=== PATIENT | male | born 1965 | race Two or more races ===

== ENCOUNTER 2024-04-13 10:42 | Inpatient (IN) | payer MEDICAID, OTHER ==
[~2024-04-13] VITALS: Ht 172.7 cm; Wt 86.0 kg
--- NOTE | 2024-04-13 11:03 | ED.PDOC ---
SOB-HPI HPI Comments 59Y M with PMHx asthma presents to ED via EMS for chief complaint SOB x1day. Patient has not tried any medication prior to coming to the ER. He was giving a breathing treatment in route for which he states that he feels slightly better. Pt denies chest pain, fever, and n/v/d. Denies any other symptoms. Chief Complaint: Shortness of Breath Time Seen by MD: 10:48 Reviewed notes: Nurses Notes, [employer] Notes, Medications, Allergies Information Source: Patient, Emergency Med Personnel Mode of Arrival: EMS Brought in by: EMS Severity: Mild Timing: Days Duration: Since onset Context: At Rest PE Risk Factors: None History of: Asthma Prehospital treatment: None Modifying Factors: Nothing Associated Signs and Symptoms: None Past Medical History PAST MEDICAL HISTORY: Asthma Surgical History: Denies all surgeries Family History Family History: Unknown Social History Smoker: Non-Smoker Alcohol: Denies ETOH Use Drugs: Denies Drug Use Lives In: Home Constitutional: denies: chills, diaphoresis, fatigue, fever, malaise, sweats, weakness, others EENTM: denies: blurred vision, double vision, ear bleeding, ear discharge, ear drainage, ear pain, ear ringing, eye pain, eye redness, hearing loss, mouth pain, mouth swelling, nasal discharge, nose bleeding, nose congestion, nose pain, photophobia, tearing, throat pain, throat swelling, voice changes, others Respiratory: reports: shortness of breath; denies: cough, hemoptysis, orthopnea, SOB at rest, SOB with excertion, stridor, wheezing, others Cardiovascular: denies: chest pain, dizzy spells, diaphoresis, Dyspnea on exertion, edema, irregular heart beat, left arm pain, lightheadedness, palpitations, PND, syncope, others Gastrointestinal: denies: abdomen distended, abdominal pain, blood streaked bowels, constipated, diarrhea, dysphagia, difficulty swallowing, hematemesis, melena, nausea, poor appetite, poor fluid intake, rectal bleeding, rectal pain, vomiting, others Genitourinary: denies: burning, dysuria, flank pain, frequency, hematuria, incontinence, penile discharge, penile sore, pain, testicle pain, testicle swelling, urgency, others Neurological: denies: dizziness, fainting, headache, left sided numbness, left sided weakness, numbness, paresthesia, pre-existing deficit, right sided numbness, right sided weakness, seizure, speech problems, tingling, tremors, wea kness, others Musculoskeletal: denies: back pain, gout, joint pain, joint swelling, muscle pain, muscle stiffness, neck pain, others Integumetry: denies: bruises, change in color, change in hair/nails, dryness, l aceration, lesions, lumps, rash, wounds, others Allergic/Immunocompromised: denies: Difficulty Healing, Frequent Infections, Hives, Itching, others Hematologic/Lymphatic: denies: anemia, blood clots, easy bleeding, easy bruising, swollen glands, others Endocrine: denies: excessive hunger, excessive sweating, excessive thirst, excessive urination, flushing, intolerance to cold, intolerance to heat, unexplained weight gain, unexplained weight loss, others Psychiatric: denies: anxiety, bipolar disorder, depression, hopeless, panic disorder, schizophrenia, sleepless, suicidal, others All Other Systems: Reviewed and Negative Physical Exam General Appearance: Moderate Distress, Normal HEENT: Normal ENT Inspection, Pharynx Normal, TMs Normal Neck: Full Range of Motion, Non-Tender, Normal, Normal Inspection Respiratory: Chest Non-Tender, No Accessory Muscle Use, Respiratory Distress, Wheezing Cardiovascular: No Edema, No JVD, No Murmur, No Gallop, Normal Peripheral Pulses, Regular Rate/Rhythm Breast Exam: Deferred Gastrointestinal: No Organomegaly, Non Tender, No Pulsatile Mass, Normal Bowel Sounds, Soft Genitalia: Deferred Pelvic: Deferred Rectal: Deferred Extremities: No calf tenderness, Normal capillary refill, Normal inspection, Normal range of motion, Non-tender, No pedal edema Musculoskeletal : Apperance: Normal Neurologic: Alert, marbleizing machine tender II-XII nml as Tested, No Motor Deficits, Normal Affect, Normal Mood, No Sensory Deficits Cerebellar Function: NOT DONE Reflexes: NOT DONE Skin: Dry, Normal Color, Warm Peripheral Pulses: 3+ Radial (R), 3+ Radial (L) Lymphatic: No Adenopathy Was a procedure done? Was a procedure done?: No Differential Dx Differential Diagnosis: Anxiety, Asthma, Bronchitis, CHF, COPD, Pneumonia X-Ray, Labs, Meds, VS Vital Signs Date Time Temp Pulse Resp B/P (MAP) Pulse Ox O2 Delivery O2 Flow Rate FiO2 12/24/24 12:30 99.0 102 18 96/65 (75) 96 99.0 04/13/24 11:25 18 92 Room Air* 0 21 04/13/24 11:00 Room Air* 0 04/13/24 10:52 98.0 102 18 129/68 (88) 99 Lab Test 04/13/24 12:42 04/13/24 11:26 Range/Units Sodium Level 139 136-145 mmol/L Potassium Level 3.9 3.5-5.1 mmol/L Chloride Level 107 98-107 mmol/L Carbon Dioxide Level 26 20-31 mmol/L Anion Gap 6 5-15 Blood Urea Nitrogen 11 9-23 mg/dL Creatinine 0.89 0.700-1.30 mg/dL Glomerular Filtration Rate Calc 100 >90 mL/min BUN/Creatinine Ratio 12.4 10.0-20.0 Serum Glucose 107 H 74-106 mg/dL Calcium Level 8.9 8.7-10.4 mg/dL White Blood Count 2.7 L 4.4-10.8 10^3/uL Red Blood Count 4.37 L 4.5-5.90 10^6/uL Hemoglobin 14.0 13.5-17.5 g/dL Hematocrit 41.7 41.0-53.0 % Mean Corpuscular Volume 95.5 80.0-100.0 fL Mean Corpuscular Hemoglobin 32.2 H 28.0-32.0 pg Mean Corpuscular Hemoglobin Concent 33.7 32.0-36.0 g/dL Red Cell Distribution Width 14.1 11.8-14.3 % Platelet Count 201 140-450 10^3/uL Mean Platelet Volume 9.9 6.9-10.8 fL Neutrophils (%) (Auto) 37.0-80.0 % Lymphocytes (%) (Auto) 10.0-50.0 % Monocytes (%) (Auto) 0.0-12.0 % Basophils (%) (Auto) 0.0-2.0 % Neutrophils # (Auto) 1.6-8.6 10 ^3/uL Lymphocytes # (Auto) 0.4-5.4 10 ^3/uL Monocytes # (Auto) 0-1.3 10 ^3/uL Differential Total Cells Counted 100.0 100 Neutrophils % (Manual) 61 37.0-80.0 Band Neutrophils % (Manual) 0 Lymphocytes % (Manual) 20 10.0-50.0 Monocytes % (Manual) 16 H 0-12 Eosinophils % (Manual) 3 0-7 Basophils % (Manual) 0 0.0-2.0 Metamyelocytes % (manual) 0 Myelocytes % (Manual) 0 Promyelocytes % (Manual) 0 Blast Cells % (Manual) 0 Reactive Lymphocytes 0 Platelet Estimate Adequate Red Blood Cell Morphology Normal Current Medications Medications (Trade) Dose Ordered Sig/Antony Route Start Time Stop Time Status Last Admin Methylprednisolone Sodium Succinate (Solu Medrol) 125 mg ONCE ONCE IV 04/13/24 11:00 04/13/24 11:01 DC 04/13/24 11:36 Albuterol (Ventolin Medneb) 5 mg ONCE ONCE NEB 04/13/24 11:00 04/13/24 11:01 DC 04/13/24 11:24 Ipratropium [place] (Atrovent Medneb) 0.5 mg ONCE ONCE NEB 04/13/24 11:00 04/13/24 11:01 DC 04/13/24 11:24 [place] [id number] Ph: [phone] DIAGNOSTIC IMAGING Diagnostic Imaging Report : [id number] Signed PATIENT: TONIA CARRILLO ACCT: [id number] UNIT: [id number] : 1965 LOC: ER ROOM / BED: / AGE / SEX: 59 / M ADM STATUS: REG ER SERVICE 1051 ORDERING PHYSICIAN: MARIA L RUCKER MD PROCEDURE(s): CXRP - CHEST PORTABLE REASON: sob ORDER NUMBER(s): [id number], ACCESSION NUMBER(s): [id number] CHEST RADIOGRAPH Indication: sob Technique: Single frontal view of the chest was obtained COMPARISON: None FINDINGS: Lines and Tubes: None Lungs: Masslike opacity in the medial left lung base measuring 5.0 cm. Diffuse congestion. Pleura: No effusion. No pneumothorax. Cardiomediastinal contours: Unremarkable Bones: Unremarkable IMPRESSION: Congestion may represent mild fluid overload or pulmonary vascular congestion. 5.0 cm masslike opacity in the medial left lung base. CT could be obtained to further evaluate if clinically indicated. ATED BY: ADRIAN LINDER MD DICTATED DATE/TIME: 04/13/24 1113 SIGNED BY: ADRIAN LINDER MD SIGNED DATE/TIME: 04/13/24 1113 CC: Patient alert. Came in because of shortness a breath. States that he is feeling much better after breathing treatment. Vitals stable. Chest x-ray reviewed does show congestion with masslike lesion. Chronic mass opacity in the left lung. Reviewed his history. Explained to the patient. Continue cardiac monitoring. He was given breathing treatment in route. Still continues to have shortness a breath. He does have asthma for which he does not take care of himself. Time of 1ST Reevaluation: 11:18 Reevaluation 1ST: Unchanged Patient Education/Counseling: Diagnosis, Treatment Family Education/Counseling: No Family Present Additional Information The following tests were ordered, and results were reviewed by me: CBC, BMP, CXR Additional Information was gathered from interviewing the following independent historians: EMS I reviewed and agreed with the following test results read by other providers: CXR I discussed treatment and results with medical personnel. Departure 1 Departure Time of Disposition: 15:16 Impression: Primary Impression: Acute respiratory distress Additional Impression: Asthma exacerbation Qualified Codes: J45.901 - Unspecified asthma with (acute) exacerbation Disposition: ADMITTED INPATIENT Admit to: Med Surg Condition: Guarded Critical Care Note Critical Care Time?: Yes (90 min-critical care time only) Stability Stability form required: No Heart Score Heart Score: Heart Score Response (Comments) Value History N/A 0 EKG N/A 0 Age N/A 0 Risk Factors N/A 0 Troponin N/A 0 Total 0 I personally scribed for MARIA L RUCKER MD ([email or web address]) on 04/13/24 at 11:03. Electronically submitted by Kayli Mccord ([email or web address]). I personally scribed for MARIA L RUCKER MD ([email or web address]) on 04/13/24 at 11:28. Electronically submitted by Kayli Mccord ([email or web address]). MARIA L RUCKER MD Apr 13, 2024 11:03
--- NOTE | 2024-04-13 11:15 | DVH ---
CHEST RADIOGRAPH Indication: sob Technique: Single frontal view of the chest was obtained COMPARISON: None FINDINGS: Lines and Tubes: None Lungs: Masslike opacity in the medial left lung base measuring 5.0 cm. Diffuse congestion. Pleura: No effusion. No pneumothorax. Cardiomediastinal contours: Unremarkable Bones: Unremarkable IMPRESSION: Congestion may represent mild fluid overload or pulmonary vascular congestion. 5.0 cm masslike opacity in the medial left lung base. CT could be obtained to further evaluate if cl inically indicated.
[2024-04-13] MEDS: ALBUTEROL SULF 2.5 MG/0.5ML(0.5%) NEB SOLN NEB ONE (11:24)
[2024-04-13] MEDS: IPRATROPIUM BROM 0.5 MG/2.5ML INH SOL NEB ONE (11:24)
[2024-04-13] MEDS: methylPREDNISolone SOD SUCC 125 MG/2 ML VL IV ONE (11:36)
[2024-04-13 11:52] LABS: Hematocrit 41.7 % (41.0-53.0); Mean Corpuscular Hemoglobin 32.2 pg (28.0-32.0); Mean Corpuscular Hgb Conc. 33.7 g/dL (32.0-36.0); Mean Corpuscular Volume 95.5 fL (80.0-100.0); Platelet Count (auto) 201 10^3/uL (140-450); Red Blood Cells 4.37 10^6/uL (4.5-5.90); Red Cell Distribution Width 14.1 % (11.8-14.3); White Blood Cell 2.7 10^3/uL (4.4-10.8)
[2024-04-13 12:01] LABS: Band Neutrophils % (manual) 0; Basophils % (manual) 0 (0.0-2.0); Blast Cells 0; Metamyelocytes % 0; Myelocytes % 0; Promyelocytes % 0; Reactive Lymphocytes 0
[2024-04-13 12:33] LABS: Eosinophils % (manual) 3 (0-7); Lymphocytes % (manual) 20 (10.0-50.0); Monocytes % (manual) 16 (0-12); Platelet Estimate Adequate; RBC Morphology Normal
[2024-04-13 13:04] LABS: Potassium 3.9 mmol/L (3.5-5.1); Sodium 139 mmol/L (136-145)
[2024-04-13 13:05] LABS: Anion Gap 6 (5-15); Calcium 8.9 mg/dL (8.7-10.4); Carbon Dioxide 26 mmol/L (20-31)
[2024-04-13 13:10] LABS: BUN/Creatinine Ratio 12.4 (10.0-20.0); Blood Urea Nitrogen 11 mg/dL (9-23); Chloride 107 mmol/L (98-107); Glucose 107 mg/dL (74-106)
--- NOTE | 2024-04-13 13:56 | DVHHP2 ---
Review of Systems Allergies: Coded Allergies: Penicillins (Verified Allergy, Unknown, 04/13/24) Exam Vital Signs Vital Signs Date Time Temp Pulse Resp B/P (MAP) Pulse Ox O2 Delivery O2 Flow Rate FiO2 04/13/24 12:30 99.0 102 18 96/65 (75) 96 99.0 04/13/24 11:25 Room Air* 0 21 Labs/Xrays Labs Test 04/13/24 12:42 04/13/24 11:26 Range/Units Sodium Level 139 136-145 mmol/L Potassium Level 3.9 3.5-5.1 mmol/L Chloride Level 107 98-107 mmol/L Carbon Dioxide Level 26 20-31 mmol/L Anion Gap 6 5-15 Blood Urea Nitrogen 11 9-23 mg/dL Creatinine 0.89 0.700-1.30 mg/dL Glomerular Filtration Rate Calc 100 >90 mL/min BUN/Creatinine Ratio 12.4 10.0-20.0 Serum Glucose 107 H 74-106 mg/dL Calcium Level 8.9 8.7-10.4 mg/dL White Blood Count 2.7 L 4.4-10.8 10^3/uL Red Blood Count 4.37 L 4.5-5.90 10^6/uL Hemoglobin 14.0 13.5-17.5 g/dL Hematocrit 41.7 41.0-53.0 % Mean Corpuscular Volume 95.5 80.0-100.0 fL Mean Corpuscular Hemoglobin 32.2 H 28.0-32.0 pg Mean Corpuscular Hemoglobin Concent 33.7 32.0-36.0 g/dL Red Cell Distribution Width 14.1 11.8-14.3 % Platelet Count 201 140-450 10^3/uL Mean Platelet Volume 9.9 6.9-10.8 fL Neutrophils (%) (Auto) 37.0-80.0 % Lymphocytes (%) (Auto) 10.0-50.0 % Monocytes (%) (Auto) 0.0-12.0 % Basophils (%) (Auto) 0.0-2.0 % Neutrophils # (Auto) 1.6-8.6 10 ^3/uL Lymphocytes # (Auto) 0.4-5.4 10 ^3/uL Monocytes # (Auto) 0-1.3 10 ^3/uL Differential Total Cells Counted 100.0 100 Neutrophils % (Manual) 61 37.0-80.0 Band Neutrophils % (Manual) 0 Lymphocytes % (Manual) 20 10.0-50.0 Monocytes % (Manual) 16 H 0-12 Eosinophils % (Manual) 3 0-7 Basophils % (Manual) 0 0.0-2.0 Metamyelocytes % (manual) 0 Myelocytes % (Manual) 0 Promyelocytes % (Manual) 0 Blast Cells % (Manual) 0 Reactive Lymphocytes 0 Platelet Estimate Adequate Red Blood Cell Morphology Normal [facility] Apr 13, 2024 13:56
[2024-04-13] MEDS ORDERED: NITROGLYCERIN 0.4 MG SL TAB SL PRN (16:30)
[2024-04-13] MEDS ORDERED: MORPHINE SULFATE INJ 2 MG/ml SYRG IV PRN (16:30)
[2024-04-13] MEDS ORDERED: ONDANSETRON HCL 4 MG/2 ML VIAL IV PRN (16:30)
[2024-04-13] MEDS ORDERED: ACETAMINOPHEN 325 MG TAB PO PRN (16:30)
[2024-04-13 17:06] VITALS: PULSE 94; RESP 20; O2SAT 94
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
[2024-04-13 17:30] VITALS: BP 96/65; PULSE 102; RESP 18; TEMP 98; O2SAT 96
[2024-04-13 17:33] LABS: Alanine Aminotransferase 28 U/L (7-40); Albumin 4.3 g/dL (3.2-4.8); Alkaline Phosphatase 57 U/L (46-116); Anion Gap 8 (5-15); Aspartate Aminotransferase 33 U/L (13-40); BUN/Creatinine Ratio 11.6 (10.0-20.0); Bilirubin, Total 0.5 mg/dL (0.2-1.0); Blood Alcohol 4.4 mg/dL (<10); Blood Urea Nitrogen 11 mg/dL (9-23); Calcium 9.4 mg/dL (8.7-10.4); Carbon Dioxide 27 mmol/L (20-31); Chloride 103 mmol/L (98-107); Potassium 4.1 mmol/L (3.5-5.1); Sodium 138 mmol/L (136-145); Total Protein 7.7 g/dL (5.7-8.2)
[2024-04-13 18:01] LABS: Glucose 126 mg/dL (74-106)
[2024-04-13 18:09] LABS: Erythrocyte Sedimentation Rate 19 mm/hr (0-20)
[2024-04-13 18:42] VITALS: PULSE 87; RESP 18; O2SAT 93
[2024-04-13] MEDS: LEVALBUTEROL HCL 1.25 MG/3 ML NEB NEB SCH (18:42)
[2024-04-13] MEDS: IPRATROPIUM BROM 0.5 MG/2.5ML INH SOL NEB SCH (18:42)
[2024-04-13 18:52] VITALS: PULSE 84; RESP 18; O2SAT 98
[2024-04-13 19:30] VITALS: PULSE 91; RESP 16; O2SAT 96
[2024-04-13] MEDS: MAGNESIUM SULFATE 1GM/100ML 100 ML IV SCH (19:45)
[2024-04-13 20:33] LABS: COVID19 ANTIGEN SOFIA FIA NEGATIVE (NEGATIVE)
[2024-04-13 20:34] LABS: Rapid Influenza B Negative (Negative)
[2024-04-13 20:35] LABS: Rapid Influenza A Positive (Negative)
[2024-04-13 20:54] LABS: Free T3 3.06 pg/mL (2.3-4.2)
[2024-04-13 20:55] LABS: Free T4 (Free Thyroxine) 1.13 ng/dL (0.89-1.76)
[2024-04-13] MEDS: levoFLOXacin 750MG 150 ML IV ONE (21:55)
[2024-04-13] MEDS: levETIRAcetam 500 MG TAB PO SCH (22:39)
[2024-04-13] MEDS: QUEtiapine FUMARATE 25 MG TAB PO SCH (22:40)
[2024-04-13] MEDS: MIRTAZAPINE 30 MG TAB PO SCH (22:40)
[2024-04-14] VITALS (18 sets, daily range): BP systolic 95–116; BP diastolic 43–65; PULSE 86–107; RESP 18–21; TEMP 97.5–100.3; O2SAT 90–100
[2024-04-14 00:35] LABS: Rapid Strep A Screen-Throat Negative
[2024-04-14 06:11] LABS: Alanine Aminotransferase 21 U/L (7-40); Albumin 3.5 g/dL (3.2-4.8); Alkaline Phosphatase 48 U/L (46-116); Anion Gap 8 (5-15); Aspartate Aminotransferase 28 U/L (13-40); Bilirubin, Total 0.4 mg/dL (0.2-1.0); Blood Urea Nitrogen 13 mg/dL (9-23); Carbon Dioxide 25 mmol/L (20-31); Chloride 107 mmol/L (98-107); Glucose 90 mg/dL (74-106); Potassium 4.3 mmol/L (3.5-5.1); Sodium 140 mmol/L (136-145); Total Protein 6.5 g/dL (5.7-8.2)
[2024-04-14 07:25] LABS: Basophils # (auto) 0 10 ^3/uL (0-0.2); Basophils % (auto) 0.1 % (0.0-2.0); Eosinophils # (auto) 0 10 ^3/uL (0-0.8); Hematocrit 41.1 % (41.0-53.0); Hemoglobin 13.5 g/dL (13.5-17.5); Lymphocytes # (auto) 0.5 10 ^3/uL (0.4-5.4); Lymphocytes % (auto) 11.2 % (10.0-50.0); Mean Corpuscular Hemoglobin 31.4 pg (28.0-32.0); Mean Corpuscular Hgb Conc. 32.9 g/dL (32.0-36.0); Mean Corpuscular Volume 95.6 fL (80.0-100.0); Monocytes # (auto) 0.6 10 ^3/uL (0-1.3); Monocytes % (auto) 12.5 % (0.0-12.0); Neutrophils # (auto) 3.7 10 ^3/uL (1.6-8.6); Neutrophils % (auto) 76.2 % (37.0-80.0); Platelet Count (auto) 179 10^3/uL (140-450); Red Cell Distribution Width 13.2 % (11.8-14.3); White Blood Cell 4.8 10^3/uL (4.4-10.8)
[2024-04-14] MEDS ORDERED: IOHEXOL 300 MG/ML 100ML BOTTLE IJ ONE (08:49)
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
[2024-04-14] MEDS ORDERED: levoFLOXacin 750MG 150 ML IV SCH (10:00)
--- NOTE | 2024-04-14 11:33 | DVHSR ---
APPROVED REPORT EXAM: Two-dimensional and M-mode echocardiogram with Doppler and color Doppler. Blood Pressure: 116/54 mmHg INDICATION sob rule out structural heart disease DIMENSIONS LVDd4.2 (3.8-5.7cm)LA (2D)3.8 (1.9-4.0cm)Aortic Root4.3 (2.0-3.7cm) LVDs2.8 (2.5-4.0cm)LA (MM) (1.9-4.0cm)Aortic Cusp Exc2.3 (1.5-2.0cm) EF (%) 62.5 (55-70%)Rt. Atrium3.8 (1.9-4.0cm)Asc. Aorta cm IVSd1.3 (0.7-1.1cm)RV (D)3.1 (1.8-2.4cm) PWd1.1 (0.7-1.1cm) Mitral Valve MitralMitral Stenosis E wave0.56m/sMV Mean GR.mmHg A wave0.68m/sMV Peak GR.50mmHg E/A ratio0.82D MVAcm2 DECEL [id number] 1/2 Tim[place] Aortic Valve Aortic ValveAortic Stenosis V11.03m/Kendra Mean GR.4mmHg V21.26m/Kendra Peak GR.6mmHg Pulmonic Valve V20.86m/s Tricuspid Valve TR Velocity1.79m/s [id number] Conclusion Normal left ventricular size and dimension. Normal left ventricular systolic function estimated ejec tion fraction 60%. There is a grade 1 diastolic dysfunction Normal right ventricular size and dimension. Normal right ventricular systolic function. Normal rig ht ventricular systolic pressure at 60 mm of mercury. Normal biatrial size and dimension. Normal aortic valve structure and function. Normal mitral valve structure and function. Normal tricuspid valve structure and function. The pulmonary valve is grossly normal. No pericardial effusion.
[2024-04-14] MEDS: OSELTAMIVIR 75 MG CAP PO SCH (11:37)
[2024-04-14] MEDS: ENOXAPARIN SOD 40 MG/0.4 ML SYRINGE SC SCH (11:37)
[2024-04-14] MEDS: methylPREDNISolone SOD SUCC 40 MG/ML VL IV SCH (11:37)
[2024-04-14] MEDS: levoFLOXacin 250 MG TAB PO ONE (17:56)
[2024-04-14] MEDS: ACETAMINOPHEN 325 MG TAB PO PRN (18:01)
[2024-04-15] VITALS (16 sets, daily range): BP systolic 93–106; BP diastolic 46–72; PULSE 81–109; RESP 16–20; TEMP 97.8–100; O2SAT 90–100
[2024-04-15 07:02] LABS: Urine Bacteria None Seen /hpf (None Seen)
[2024-04-15 07:28] LABS: Urine Blood Negative /uL (Negative); Urine Clarity Clear (Clear); Urine Color Light-Yellow (Yellow); Urine Protein, UAD Negative (Negative); Urine Specific Gravity 1.021 (1.001-1.035); Urine Squamous Epithelial Cell None Seen /hpf (<5); Urine Urobilinogen Normal (Negative); Urine WBC 1 /hpf (0 - 3); Urine pH 5.5 (5.0-9.0)
[2024-04-15 07:40] LABS: Amphetamine Screen, Urine Neg (NEGATIVE)
[2024-04-15 07:42] LABS: Opiate Scree,Urine Neg (NEGATIVE); Phencyclidine Screen, Urine Neg (NEGATIVE)
[2024-04-15 07:45] LABS: Barbiturate Scree,Urine Neg (NEGATIVE); Benzodiazephine Screen, Urine Neg (NEGATIVE); Cannabinoid Screen, Urine Neg (NEGATIVE); Cocaine Screen, Urine Neg (NEGATIVE)
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
--- NOTE | 2024-04-15 11:15 | DVH ---
Procedure: CT CHEST WITHOUT CONTRAST Reason for study/Clinical History: Possible lung mass. needs further delineation. Comparison Study: None available at time of dictation. Exam Date: 04/15/2024 10:31 AM TECHNIQUE: Multidetector CT of the chest was performed from the lung apices to the upper abdomen with out the use of intravenous contract. Axial, coronal and sagittal multiplanar reformats were performed . Radiation Dose Information: CT Dose: CTDI volume is 18.24 mGy. Dose-length product is 642.39 mGy*cm The dose indicators for CT are the volume Computed Tomography (CT) Dose Index (CTDIvol) and the Dose Length Product (DLP), and are measured in units of mGy and mGy-cm, respectively. These indicators are not patient dose, but values generated from the CT scanner acquisition factors. The report includes radiation exposure data for exposures received during this examination. FINDINGS: Lower neck: Normal thyroid. Lungs: Subsegmental atelectasis/ consolidation in the lingula. Patchy airspace opacities in the left lower lobe. Heart/Vascular Structures: Normal heart size. No pericardial effusion. Lymph Nodes: No adenopathy Pleura: Trace left pleural effusion. Musculoskeletal: No acute osseous abnormality. Soft tissues: Normal. Upper abdomen: Moderate sized fat containing left posteromedial diaphragmatic hernia. IMPRESSION: Subsegmental atelectasis/ consolidation in the lingula. Patchy airspace opacities in the left lower lobe may represent developing pneumonia. There is a moderate size left posteromedial diaphragmatic hernia containing fat. This likely corresp onds to questionable mass on chest radiograph dated 04/13/2024. Radiation optimization: All CT scans at this facility use at least one of these dose optimization sonali hniques: automated exposure control mA and/or kV adjustment per patient size (includes targeted exam s where dose is matched to clinical indication) or iterative reconstruction.
[2024-04-15] MEDS: FUROSEMIDE 20 MG TAB PO ONE (11:30)
[2024-04-15] MEDS: levoFLOXacin 250 MG TAB PO SCH (11:30)
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
[2024-04-16] VITALS (15 sets, daily range): BP systolic 87–106; BP diastolic 38–64; PULSE 84–98; RESP 16–20; TEMP 98.2–99.1; O2SAT 88–99
[2024-04-16 02:06] LABS: EBV Ab VCA IgG Antibody >600.0 U/mL (0.0-17.9); EBV Ab VCA IgM Antibody <36.0 U/mL (0.0-35.9); EBV Early Antigen IgG Antibody >600.0 U/mL (0.0-17.9)
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
[2024-04-16 11:06] LABS: Topiramate (Topamax) <1.5 ug/mL (2.0-25.0)
[2024-04-16 13:06] LABS: Levetiracetam (Keppra) <2.0 ug/mL (10.0-40.0)
[2024-04-16 16:47] LABS: Base Excess 4.6 mmol/L (-2.0-3.0)
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
[2024-04-17] VITALS (12 sets, daily range): BP systolic 87–111; BP diastolic 52–68; PULSE 78–98; RESP 14–19; TEMP 97.8–98.3; O2SAT 90–96
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
[2024-04-18] VITALS (10 sets, daily range): BP systolic 99–112; BP diastolic 56–75; PULSE 67–102; RESP 14–20; TEMP 97.3–98.3; O2SAT 88–95
[2024-04-18] MEDS ORDERED: LEVO750T40 PO (16:09)
[2024-04-18] MEDS ORDERED: PRED20TA2 PO (16:09)
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
[2024-04-19 05:00] VITALS: BP 96/56; PULSE 78; RESP 20; TEMP 97.7; O2SAT 92
[2024-04-19 08:11] VITALS: PULSE 85; RESP 16; O2SAT 91
[2024-04-19 08:17] VITALS: PULSE 77; RESP 18; O2SAT 97
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
[2024-04-19 11:54] VITALS: BP 91/51; PULSE 80; RESP 18; TEMP 97.5; O2SAT 93
[2024-04-19 14:08] VITALS: PULSE 78; RESP 20; O2SAT 93
[2024-04-19 14:18] VITALS: PULSE 81; RESP 18; O2SAT 98
[2024-04-19] MEDS ORDERED: KEP500T PO (14:37)
[2024-04-19] MEDS ORDERED: QUET50TA5 PO (14:39)
== END 2024-04-19 15:41 | disposition home or self-care (01) | DRG 141 ==
LOC: EDBD 10:42 → ER 10:42 → TELE 16:25 → TELE-WESTW 04-14 01:55 → WEST WING 04-18 15:20
PROVIDERS: ADMIT Student in an Organized Health Care Education/Training Program; ATTEND Emergency Medicine
DX: J45.901 Unspecified asthma with (acute) exacerbation (principal); J96.01 Acute respiratory failure with hypoxia; J10.00 Influenza due to other identified influenza virus with unspecified type of pneumonia; J18.9 Pneumonia, unspecified organism; F32.A Depression, unspecified; E07.9 Disorder of thyroid, unspecified; E66.3 Overweight; D72.821 Monocytosis (symptomatic); E07.81 Sick-euthyroid syndrome; F11.10 Opioid abuse, uncomplicated; Z53.20 Procedure and treatment not carried out because of patient's decision for unspecified reasons; G40.909 Epilepsy, unspecified, not intractable, without status epilepticus; F41.9 Anxiety disorder, unspecified; F60.2 Antisocial personality disorder; Z88.0 Allergy status to penicillin; Z71.51 Drug abuse counseling and surveillance of drug abuser; Z91.199 Patient's noncompliance with other medical treatment and regimen due to unspecified reason; Z91.148 Patient's other noncompliance with medication regimen for other reason; Z68.22 Body mass index [BMI] 22.0-22.9, adult
CPT/HCPCS: 36415; 36600; 71045; 71250; 80048; 80053; 80201; 80307; 80320; 81001; 82542; 82805; 83605; 83880; 84439; 84443; 84481; 84484; 85007; 85025; 85027; 85379; 85652; 86141; 86664; 86703; 87070; 87426; 87804; 87880; 93306; 94640; 99291; 99292; G0378; J1956